=== PATIENT | male | born 1975 | race Caucasian/White ===

== ENCOUNTER 2017-11-13 14:34 | Emergency (ER) | payer MEDICARE, MEDICAID ==
[~2017-11-13] VITALS: Ht 175.3 cm; Wt 85.9 kg
[~2017-11-13 14:34] MED LIST: ALBU1AER INH; ALPR1TAB3 PO; CLON0.3T PO; CYCL-36 PO; LISI40TA PO; LORTA10 PO; METO50TA PO; MORP30SU PO; NICO21DI2 TD; TIZA4 PO
[2017-11-13 14:36] VITALS: BP 166/95; PULSE 68; RESP 16; TEMP 97.9; O2SAT 100
[2017-11-13] MEDS ORDERED: BACT800T5 PO (15:20)
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
== END 2017-11-13 15:38 | disposition home or self-care (01) ==
LOC: NEPK 14:34
DX: L02.511 Cutaneous abscess of right hand (principal); I10 Essential (primary) hypertension; J45.909 Unspecified asthma, uncomplicated; F32.9 Major depressive disorder, single episode, unspecified; F41.9 Anxiety disorder, unspecified; F42.9 Obsessive-compulsive disorder, unspecified; K21.9 Gastro-esophageal reflux disease without esophagitis; M19.90 Unspecified osteoarthritis, unspecified site
CPT/HCPCS: 10060